=== PATIENT | male | born 1965 | race Caucasian/White ===

== ENCOUNTER 2018-02-09 14:37 | Emergency (ER) | payer MEDICAID ==
[2018-02-09] MEDS ORDERED: MORPHINE SULFATE 10 MG/ML VIAL IVP ONE (14:47)
[2018-02-09] MEDS ORDERED: ACETAMINOPHEN 1,000 MG/100 ML BTL IVPB ONE (14:47)
[2018-02-09] MEDS ORDERED: IPRATROPIUM/ALBUTEROL (0.5MG/3MG) NEB INH ONE (14:48)
--- NOTE | 2018-02-09 14:50 | Emergency Department Record ---
History of Present Illness - General Stated Complaint: PAIN IN LEFT HIP Time Seen by Provider: 02/09/18 14:46 Source: Patient Mode of Arrival: Ambulatory Limitations: No limitations - History of Present Illness Initial comments: 52 yo male presents with one month of back pain with pain down the left leg. The pain is sharp and slowly worsening. He has ESRD. He stopped going to dialysis about 3 months ago. He states he is not currently taking any of his medications and he does not have a PCP. He is here with his cousin who he lives with and is his wound care rn. He has been tired, confused often, and has trouble collecting his thoughts. No syncope. No fever that she is aware of at this time. No trauma. -: Month(s) (1) Location: Left, Back Radiation: Back Quality: Aching, Sharp Consistency: Constant Improves with: None Worsens with: Movement Associated Symptoms: Cough Treatments Prior to Arrival: None - [place] Coma Scale Eye Response: (4) Open spontaneously Motor Response: (6) Obeys commands Verbal Response: (5) Oriented [place] Total: 15 - Related Data Allergies Allergy/AdvReac Type Severity Reaction Status Date / Time No Known Allergies Allergy PT UNSURE Verified 07/10/15 17:21 OF REACTION Review of Systems Constitutional: Reports: Malaise, Weakness. Denies: Chills, Fever Eyes: Denies: Eye discharge, Eye pain ENT: Denies: Congestion, Throat pain Respiratory: Reports: Cough, Dyspnea, Wheezes. Denies: Hemoptysis Cardiovascular: Denies: Chest pain, Palpitations, Syncope Endocrine: Denies: Fatigue Gastrointestinal: Denies: Abdominal pain, Diarrhea, Nausea, Vomiting Genitourinary: Denies: Dysuria, Frequency Musculoskeletal: Reports: Back pain. Denies: Arthralgia, Myalgia Skin: Reports: Rash (groiin). Denies: Bruising, Change in color Neurological: Reports: Confusion (at times), Weakness (generalized). Denies: Numbness Psychiatric: Denies: Anxiety Hematological/Lymphatic: Denies: Easy bleeding, Easy bruising Past Medical History - SOCIAL HISTORY Smoking Status: Current every day smoker - RESPIRATORY Hx Respiratory Disorders: No - CARDIOVASCULAR Hx Cardio Disorders: No - NEURO Hx Neuro Disorders: Yes Hx CVA: Yes - GI Hx GI Disorders: No - Hx Genitourinary Disorders: No - ENDOCRINE Hx Endocrine Disorders: No - MUSCULOSKELETAL Hx Musculoskeletal Disorders: No - PSYCH Hx Psych Problems: No - HEMATOLOGY/ONCOLOGY Hx Hematology/Oncology Disorders: No Physical Exam - General General Appearance: Alert, Oriented x3, Cooperative, No acute distress Limitations: No limitations - Head Head exam: Atraumatic, Normal inspection - Eye Eye exam: Normal appearance. negative: Conjunctival injection - ENT ENT exam: Normal exam, Mucous membranes moist Ear exam: Normal external inspection Nasal Exam: Normal inspection Mouth exam: Normal external inspection - Neck Neck exam: Normal inspection - Respiratory Respiratory exam: Prolonged expiratory, Rhonchi, Wheezes. negative: Normal lung sounds bilaterally - Cardiovascular Cardiovascular Exam: Regular rate, Normal rhythm, Normal heart sounds Peripheral Pulses: 2+: Radial (R), Radial (L) (Thrill and bruit present left arm fistula) - GI/Abdominal GI/Abdominal exam: Soft, Other (groin erythema, mild weaping). negative: Tenderness - Rectal Rectal exam: Deferred - exam: Other (scrotum is spared from the diffuse erythema of rash in the suprapubic area and groin creases). negative: Circumcision, Normal inspection - Extremities Extremities exam: Normal inspection - Back Back exam: Reports: Muscle spasm, Paraspinal tenderness, Tenderness. Denies: CVA tenderness (R), CVA tenderness (L) Image of Body Front/Back: 1 - tenderness, normal inspection - Neurological Neurological exam: Abnormal gait (antalgic due to back pain), Alert, Oriented X3. negative: Altered, Motor sensory deficit - Psychiatric Psychiatric exam: Normal affect, Normal mood. negative: Agitated, Anxious - Skin Skin exam: Rash (groin, suprapubic, weaping, erythema, consistent with tinea) Course - Reevaluation(s) Reevaluation #1: EKG 15:03 Sinus Tachycardia rate 101, intervals Qtc 505 QRS 145, [place] Leftward , ST RBBB. No prior. 02/09/18 15:16 The labs were reviewed. The CBC demonstrates a WBC of 15 The BUN is 123 The CR is 21 The HCO3 is 7 The K is 3.6 02/09/18 15:52 02/09/18 16:06 Given his renal failure, weakness, he agrees with transfer for evaluation for dialysis 02/09/18 16:10 The patient states he is agreeable to have dialysis due to not feeling generally well at all He prefers [facility] at [facility] was contacted given there are not dialysis services at [facility] 02/09/18 16:18 02/09/18 16:28 Dr Saul accepts the patient for transfer for evaluation and nephrology consultation. 02/09/18 16:36 Nephrology was notified at [facility] Medical Decision Making - Lab Data Result diagrams: 02/09/18 15:03 02/09/18 15:03 Disposition Disposition: Transfer Clinical Impression: COPD exacerbation, Uremia, Tinea corporis Sciatica Qualifiers: Laterality: unspecified laterality Qualified Code(s): M54.30 - Sciatica, unspecified side Disposition: Acute Care Hospital Transfer Transfer To: [facility] Reason For Transfer: ESRD, Uremia, Sciatica, COPD Accepting Physician: Dorys Time Discussed w/Accepting Physician: 16:27 Condition: (2) Stable Time of Disposition: 16:08 Quality - Quality Measures Quality Measures: N/A - Blood Pressure Screening Does Patient Have Any of the Following: Active Dx of HTN Blood Pressure Classification: Hypertensive Reading Systolic Measurement: 188 Diastolic Measurement: 91 Screening for High Blood Pressure: Patient Exclusion, Hx of HTN [G9744]
[2018-02-09 15:10] LABS: HEMOGLOBIN 10.1 gm/dl (14.0-18.0); MEAN CELL VOLUME 89.6 fl (81-97); MEAN CORPUSCULAR HEMOGLOBIN 30.1 pg (27-33); MEAN CORPUSCULAR HGB CONC 33.7 g/dl (32-36); MEAN PLATELET VOLUME 10.3 fl (7.4-10.4); PLATELET COUNT 226 K/uL (130-400); RED BLOOD COUNT 3.35 M/uL (4.40-5.70); RED CELL DISTRIBUTION WIDTH 15.5 % (11.5-14.5); WHITE BLOOD COUNT W/O DIFF 15.6 K/uL (4.2-12.2)
[2018-02-09 15:18] LABS: PLATELET ESTIMATE NORMAL (NORMAL)
[2018-02-09 15:23] LABS: PARTIAL THROMBOPLASTIN TIME 25.7 SECONDS (24.5-39.1); PROTHROMBIN TIME (PATIENT) 10.5 SECONDS (9.5-12.1)
[2018-02-09 15:24] LABS: BILIRUBIN,TOTAL 0.4 mg/dL (0.2-1.0); CREATININE 21.3 mg/dL (0.7-1.2)
[2018-02-09 15:25] LABS: TOTAL PROTEIN 6.4 g/dL (6.6-8.7)
[2018-02-09 15:30] LABS: ALB/GLOB RATIO 1.4 (1.1-1.8); ALBUMIN 3.7 g/dL (4.0-5.0)
[2018-02-09] MEDS ORDERED: NYSTATIN 15 GM TUBE TOP STA (15:58)
--- NOTE | 2018-02-12 08:53 | RADIOLOGY REPORT ---
EXAM: LUMBAR SPINE W/OBLIQUES HISTORY: PAIN. TECHNIQUE: Five views of the lumbar spine. FINDINGS: Vertebral body height and alignment are maintained. The intervertebral discs are preserved. No fracture, dislocation, spondylolysis, or spondylolisthesis is identified. Note is made of prior abdominal hernia repair with mesh. IMPRESSION: NO ACUTE LUMBAR SPINE PATHOLOGY. JOB NUMBER: [id number] MTDD
== END 2018-02-09 17:46 | disposition short-term general hospital (02) ==
LOC: ER 14:37
DX: J44.1 Chronic obstructive pulmonary disease with (acute) exacerbation (principal); N18.6 End stage renal disease; B35.4 Tinea corporis; R53.1 Weakness; M54.42 Lumbago with sciatica, left side; M54.41 Lumbago with sciatica, right side; Z99.2 Dependence on renal dialysis; F17.210 Nicotine dependence, cigarettes, uncomplicated
CPT/HCPCS: 99285 ×2; 96365; 96375; 85730; 85610; 80053; 85027; 72110; 94640; 93005; 93010; J2270

== ENCOUNTER 2018-03-24 20:56 | Emergency (ER) | payer MEDICARE, MEDICAID ==
--- NOTE | 2018-03-24 21:05 | Emergency Department Record ---
History of Present Illness - General Chief Complaint: Altered Mental Status Stated Complaint: ALTERED MENTAL STATE Time Seen by Provider: 03/24/18 20:56 Source: Patient, EMS Mode of Arrival: EMS Limitations: Altered mental status - History of Present Illness Initial Comments: 52 yo male presents to ED for evaluation of confusion today noticed by family. Per family, patient has a history of ESRD on dialysis, was due today but did not go. Patient reports recent history of diarrhea that he has "all the time", does have stool present to the lower extremities bilaterally. Patient does not recall who his customer service rep is, does not know why he is in the ED this evening. MD Complaint: Confusion Onset/Timin -: Days(s) Severity: Mild Associated Symptoms: Denies other symptoms - [place] Coma Scale Eye Response: (4) Open spontaneously Motor Response: (6) Obeys commands Verbal Response: (5) Oriented [place] Total: 15 - Related Data Home Medications Medication Instructions Recorded Confirmed Last Taken Atorvastatin Calcium 40 mg PO DAILY 03/24/18 03/24/18 03/24/18 Calcium Acetate 668 mg PO TID 03/24/18 03/24/18 03/24/18 Cyclobenzaprine HCl [Flexeril] 5 mg PO TID 03/24/18 03/24/18 03/24/18 Hydrocodone/Acetaminophen [[place] 1 each PO BID 03/24/18 03/24/18 03/24/18 10-325 Tablet] Sevelamer Carbonate 800 mg PO TID 03/24/18 03/24/18 03/24/18 Allergies Allergy/AdvReac Type Severity Reaction Status Date / Time No Known Allergies Allergy PT UNSURE Verified 07/10/15 17:21 OF REACTION Review of Systems ROS unobtainable: Due to mental status Past Medical History - SOCIAL HISTORY Smoking Status: Current every day smoker - RESPIRATORY Hx Respiratory Disorders: No - CARDIOVASCULAR Hx Cardio Disorders: No - NEURO Hx Neuro Disorders: Yes Hx CVA: Yes - GI Hx GI Disorders: No - Hx Genitourinary Disorders: No - ENDOCRINE Hx Endocrine Disorders: No - MUSCULOSKELETAL Hx Musculoskeletal Disorders: No - PSYCH Hx Psych Problems: No - HEMATOLOGY/ONCOLOGY Hx Hematology/Oncology Disorders: No Physical Exam - General General Appearance: Alert, Oriented x3, Cooperative Limitations: Other - Head Head exam: Atraumatic, Normocephalic, Normal inspection Head exam detail: negative: Abrasion, Contusion, Ashley's sign, General tenderness, Hematoma, Laceration - Eye Eye exam: Normal appearance. negative: Conjunctival injection, Periorbital swelling, Periorbital tenderness, Scleral icterus - ENT Ear exam: negative: Auricular hematoma, Auricular trauma Nasal Exam: negative: Active bleeding, Discharge, Dried blood, Foreign body Mouth exam: negative: Drooling, Laceration, Muffled voice, Tongue elevation - Neck Neck exam: Normal inspection. negative: Meningismus, Tenderness - Respiratory Respiratory exam: Wheezes. negative: Respiratory distress, Rhonchi, Stridor - Cardiovascular Cardiovascular Exam: Regular rate, Normal rhythm, Normal heart sounds - GI/Abdominal GI/Abdominal exam: Soft. negative: Rebound, Rigid, Tenderness - Rectal Rectal exam: Deferred - exam: Deferred - Extremities Extremities exam: Other (Stool to the lower extremities bilaterally). negative : Pedal edema, Tenderness - Back Back exam: Denies: CVA tenderness (R), CVA tenderness (L) - Neurological Neurological exam: Alert, Oriented X3 - Psychiatric Psychiatric exam: Normal affect, Normal mood - Skin Skin exam: Normal color. negative: Abrasion Type of lesion: negative: abrasion Course - Reevaluation(s) Reevaluation #1: 03/24/18 21:10 EKG: NSR 81 RBBB, no acute ST-T wave changes Unchanged 02/09/18 Reevaluation #2: 03/24/18 21:22 BS ultrasound was performed, no significant pericardial effusion was identified. Initial laboratory studies were reviewed: WBC 14.2 Hgb 10.2 HCT 33.6 Reevaluation #3: 03/24/18 21:32 Comprehensive panel returned: Potassium 4.9 CO2 19 AG 19 BUN 61 Creatinine [address] Brain to initiate transfer. Reevaluation #4: 03/24/18 21:57 [facility] contacted for transfer. Review of the patient's CT imaging does not reveal an acute ICH (preliminary ED review). Reevaluation #5: 03/24/18 22:04 Case was discussed with Dr. Wheatley, will accept transfer for admission at this time. Medical Decision Making - Lab Data Result diagrams: 03/24/18 21:11 03/24/18 21:11 Disposition Disposition: Transfer Clinical Impression: Hyperkalemia, Uremia, ESRD (end stage renal disease), Elevated troponin Anemia Qualifiers: Anemia type: unspecified type Qualified Code(s): D64.9 - Anemia, unspecified Disposition: Acute Care Hospital Transfer Transfer To: [facility] Reason For Transfer: Uremia Accepting Physician: Dioni Time Discussed w/Accepting Physician: 22:05 Condition: (2) Stable Forms: Patient Portal Access Time of Disposition: 22:05 Quality - Quality Measures Quality Measures: N/A - Blood Pressure Screening Does Patient Have Any of the Following: Active Dx of HTN Blood Pressure Classification: Hypertensive Reading Systolic Measurement: 160 Diastolic Measurement: 113 Screening for High Blood Pressure: Patient Exclusion, Hx of HTN [G9744]
[2018-03-24 21:10] LABS: BASO % 0.6 % (0-6); EOS % 2.7 % (0-6); GRAN % 76.1 % (47-80); HEMATOCRIT 33.6 % (42.0-52.0); HEMOGLOBIN 10.2 gm/dl (14.0-18.0); LYMPH % 14.3 % (16-45); MEAN CELL VOLUME 102.1 fl (81-97); MEAN CORPUSCULAR HGB CONC 30.4 g/dl (32-36); MEAN PLATELET VOLUME 9.8 fl (7.4-10.4); MONO % 6.3 % (0-9); PLATELET COUNT 311 K/uL (130-400); RED BLOOD COUNT 3.29 M/uL (4.40-5.70); RED CELL DISTRIBUTION WIDTH 15.6 % (11.5-14.5); WHITE BLOOD COUNT W/O DIFF 14.2 K/uL (4.2-12.2)
[2018-03-24 21:25] LABS: BILIRUBIN,TOTAL 0.3 mg/dL (0.2-1.0); CREATININE 10.1 mg/dL (0.7-1.2); TOTAL PROTEIN 7.1 g/dL (6.6-8.7)
[2018-03-24 21:30] LABS: ALB/GLOB RATIO 1.4 (1.1-1.8); ALBUMIN 4.1 g/dL (4.0-5.0)
[2018-03-24 21:56] LABS: URINE APPEARANCE CLEAR; URINE BILIRUBIN NEGATIVE (NEGATIVE); URINE BLOOD NEGATIVE (NEGATIVE); URINE COLOR YELLOW; URINE KETONE NEGATIVE (NEGATIVE); URINE LEUKOCYTE ESTERASE NEGATIVE (NEGATIVE); URINE NITRITE NEGATIVE (NEGATIVE); URINE UROBILINOGEN 0.2 E.U./dL (0.20 - 1.00)
--- NOTE | 2018-03-26 19:31 | CT SCAN REPORT ---
EXAM: CT SCAN HEAD WO CONTRAST HISTORY: ALTERED MENTAL STATUS. TECHNIQUE: Noncontrast CT brain. COMPARISON: None. FINDINGS: Focal parenchymal hypodensity in the posterior right frontal lobe suggestive of encephalomalacia. Additional small foci of hypodensity in the right thalamus and right basal ganglia suggesting remote lacunar infarctions. No midline shift, mass effect, or abnormal intra or extraaxial fluid collection. No cerebral edema, focal mass, or intracranial hemorrhage is detected. Mild diffuse prominence of the ventricles and cortical sulci compatible with age-related cerebral volume loss. Basal cisterns are not effaced. No acute calvarial fracture is detected. Minimal opacification of the mastoid air cells bilaterally. Paranasal sinuses are clear. IMPRESSION: 1. NO ACUTE INTRACRANIAL FINDINGS. SUGGESTION OF FOCAL ENCEPHALOMALACIA IN THE POSTERIOR RIGHT FRONTAL LOBE, LIKELY REPRESENTING REMOTE INFARCTION. ADDITIONAL REMOTE LACUNAR INFARCTIONS NOTED IN THE RIGHT THALAMUS AND RIGHT BASAL GANGLIA. 2. MILD DIFFUSE CEREBRAL VOLUME LOSS. 3. PARTIAL OPACIFICATION OF THE MASTOID AIR CELLS BILATERALLY. JOB NUMBER: [id number] MTDD
== END 2018-03-25 00:20 | disposition short-term general hospital (02) ==
LOC: ER 20:56
DX: N18.6 End stage renal disease (principal); E87.5 Hyperkalemia; D64.9 Anemia, unspecified; R79.89 Other specified abnormal findings of blood chemistry; R19.7 Diarrhea, unspecified; R41.82 Altered mental status, unspecified; F17.210 Nicotine dependence, cigarettes, uncomplicated; Z99.2 Dependence on renal dialysis; Z86.73 Personal history of transient ischemic attack (TIA), and cerebral infarction without residual deficits
CPT/HCPCS: 70450; 80053; 81003; 82140; 84484; 85025; 93005; 93010; 99285

== ENCOUNTER 2018-05-22 16:28 | Emergency (ER) | payer MEDICARE, MEDICAID ==
--- NOTE | 2018-05-22 16:50 | Emergency Department Record ---
History of Present Illness - General Chief complaint: Nausea, Vomiting, Diarrhea Stated complaint: DIARRHEA FOR A MONTH Time Seen by Provider: 05/22/18 16:39 Source: Patient Mode of Arrival: EMS Limitations: No limitations - History of Present Illness Initial comments: The patient is here due to not feeling well due to having chronic diarrhea. He states he has had it for at least a month but his family stated in February he has it all the time. He is an ESRD patient on dialysis and state hes missed last weeks dialysis due to not feeling well. The patient denies any fever, chills, vomiting, or COLES's. He is a 3 times a weak dialysis patient and his Neprologist is at [facility] he believes. The patient denies any AP, back pain, cough, SOB, CP or ENE. MD complaint: Diarrhea Onset/Timin -: Month(s) Description of Diarrhea: Water Severity scale (1-10): 8 Quality: Aching Consistency: Intermittent Improves with: None Worsens with: None Associated Symptoms: Denies other symptoms - Related Data Allergies Allergy/AdvReac Type Severity Reaction Status Date / Time No Known Allergies Allergy PT UNSURE Verified 07/10/15 17:21 OF REACTION Travel Screening - Travel/Exposure Within Last 30 Days Have you traveled within the last 30 days?: No Review of Systems Constitutional: Denies: Chills, Fever Eyes: Denies: Eye discharge ENT: Denies: Congestion Respiratory: Denies: Cough, Dyspnea Cardiovascular: Denies: Arrhythmia, Chest pain Endocrine: Reports: Fatigue Gastrointestinal: Reports: Diarrhea. Denies: Nausea Genitourinary: Denies: Discharge Musculoskeletal: Denies: Arthralgia Skin: Denies: Bruising Past Medical History - SOCIAL HISTORY Smoking Status: Current every day smoker - RESPIRATORY Hx Respiratory Disorders: Yes Hx COPD: Yes - CARDIOVASCULAR Hx Cardio Disorders: Yes Hx Hypertension: Yes - NEURO Hx Neuro Disorders: Yes Hx CVA: Yes - GI Hx GI Disorders: No - Hx Genitourinary Disorders: Yes Hx Dialysis: Yes (left arm fistula) Hx Renal Disease: Yes - ENDOCRINE Hx Endocrine Disorders: No - MUSCULOSKELETAL Hx Musculoskeletal Disorders: No - PSYCH Hx Psych Problems: No - HEMATOLOGY/ONCOLOGY Hx Hematology/Oncology Disorders: No Family Medical History Any Significant Family History?: No Physical Exam - General General Appearance: Alert, Cooperative, No acute distress - Head Head exam: Atraumatic, Normocephalic - Eye Eye exam: Normal appearance, PERRL - ENT Throat exam: Normal inspection. negative: Tonsillar erythema, Tonsillar exudate - Neck Neck exam: Normal inspection, Full ROM. negative: Tenderness - Respiratory Respiratory exam: Normal lung sounds bilaterally. negative: Accessory muscle use, Rales, Respiratory distress, Rhonchi, Stridor, Wheezes - Cardiovascular Cardiovascular Exam: Regular rate, Normal rhythm, Normal heart sounds - GI/Abdominal GI/Abdominal exam: Soft, Normal bowel sounds, Hernia (The patient does have a nontender ventral wall hernia which he states is chronic.). negative: Rebound, Rigid, Tenderness - Extremities Extremities exam: Normal inspection, Full ROM, Normal capillary refill. negative: Tenderness - Back Back exam: Reports: Normal inspection - Neurological Neurological exam: Alert. negative: Motor sensory deficit - Psychiatric Psychiatric exam: negative: Anxious Course Vital Signs 05/22/18 16:30 Temperature 97.9 F Pulse Rate 101 H Respiratory 20 Rate Blood Pressure 161/99 Pulse Ox 100 - Reevaluation(s) Reevaluation #1: The patient is resting comfortably with no problems, pain, SOB, or ENE. The patient is a very unreliable historian but he has a hx of skipping dialysis. I did discuss he case with Dr. Tolentino who is agronomy internship for Nephrology at [facility] who is aware of the patient. Based on the lab results and CXR he does believe the patient can be safely discharged home for dialysis tomorrow. Dr. Tolentino did call the patient's dialysis center and get him an appointment for tomorrow morning at 7am. The patient agrees with the plan. 05/22/18 18:17 Medical Decision Making - Data Complexity MDM Data: Labs Ordered and/or Reviewed, X-Ray Ordered and/or Reviewed, EKG Ordered and/or Reviewed - Lab Data Result diagrams: 05/22/18 16:45 05/22/18 16:45 - EKG Data -: EKG Interpreted by Me EKG: No Acute Changes, Unchanged From Previous - Radiology Data Radiology results: Report reviewed (CXR: Neg for acute changes. Neg for fluid overload.) Disposition Disposition: Discharge Clinical Impression: ESRD (end stage renal disease) Disposition: Home, Self-Care Condition: (2) Stable Instructions: End Stage Kidney Disease (ED) Additional Instructions: Please limit your fluid intake and take your medicine. Please be at your dialysis appointment tomorrow at 7am. Please see your doctor for your chronic diarrhea issues. Forms: Patient Portal Access Time of Disposition: 18:21 Quality - Quality Measures Quality Measures: N/A - Blood Pressure Screening View Details: Yes Does Patient Have Any of the Following: No Blood Pressure Classification: Hypertensive Reading Systolic Measurement: 161 Diastolic Measurement: 99 Screening for High Blood Pressure: < First Hypertensive BP, F/U Documented > [ G8950] First Hypertensive Follow-up Interventions: Referral to alternative/primary care provider.
[2018-05-22 16:53] LABS: BASO % 0.7 % (0-6); EOS % 2.8 % (0-6); GRAN % 77.7 % (47-80); HEMATOCRIT 42.1 % (42.0-52.0); HEMOGLOBIN 13.7 gm/dl (14.0-18.0); LYMPH % 11.6 % (16-45); MEAN CELL VOLUME 94.8 fl (81-97); MEAN CORPUSCULAR HGB CONC 32.5 g/dl (32-36); MEAN PLATELET VOLUME 10.4 fl (7.4-10.4); MONO % 7.2 % (0-9); PLATELET COUNT 253 K/uL (130-400); RED BLOOD COUNT 4.44 M/uL (4.40-5.70); RED CELL DISTRIBUTION WIDTH 14.8 % (11.5-14.5); WHITE BLOOD COUNT W/O DIFF 9.1 K/uL (4.2-12.2)
[2018-05-22 16:58] LABS: MEAN CORPUSCULAR HEMOGLOBIN 30.8 pg (27-33)
[2018-05-22 17:02] LABS: CREATININE 11.1 mg/dL (0.7-1.2); TOTAL PROTEIN 6.8 g/dL (6.6-8.7)
[2018-05-22 17:07] LABS: ALBUMIN 4.1 g/dL (4.0-5.0); ALKALINE PHOSPHATASE 224 U/L (40-129); ALT/SGPT 12 U/L (<41); AST/SGOT 9 U/L (10.0-50.0)
[2018-05-22 17:08] LABS: BILIRUBIN,DIRECT < 0.2 mg/dL (0-0.3)
== END 2018-05-22 18:25 | disposition home or self-care (01) ==
LOC: ER 16:28
DX: I12.0 Hypertensive chronic kidney disease with stage 5 chronic kidney disease or end stage renal disease (principal); N18.6 End stage renal disease; R11.2 Nausea with vomiting, unspecified; R19.7 Diarrhea, unspecified; F17.210 Nicotine dependence, cigarettes, uncomplicated
CPT/HCPCS: 71046; 80048; 80076; 85025; 93005; 93010; 99284

== ENCOUNTER 2018-07-28 16:15 | Emergency (ER) | payer MEDICARE, MEDICAID ==
--- NOTE | 2018-07-28 16:36 | Emergency Department Record ---
History of Present Illness - General Chief complaint: Weakness Stated complaint: SICK/WEAKNESS Time Seen by Provider: 07/28/18 16:29 Source: Patient Mode of Arrival: Ambulatory Limitations: No limitations - History of Present Illness Initial comments: The patient is here due to not feeling well for 3 months. He has a long hx of renal failure and chronic diarrhea and has refused dialysis for the last few months. Now he states he is having trouble eating and is so weak he is having problems walking so a friend decided to drop him off here at [facility]. The patient is supposed to have dialysis in [place] and he has a [employer] [facility] [employer]. MD Complaint: Generalized weakness Onset/Timin -: Month(s) Improves with: None Worsens with: None - [place] Coma Scale Eye Response: (4) Open spontaneously Motor Response: (6) Obeys commands Verbal Response: (5) Oriented [place] Total: 15 - Related Data Allergies Allergy/AdvReac Type Severity Reaction Status Date / Time No Known Allergies Allergy PT UNSURE Verified 07/28/18 16:27 OF REACTION Travel Screening - Travel/Exposure Within Last 30 Days Have you traveled within the last 30 days?: No - Travel/Exposure Within Last Year Have you traveled outside the [place] in the last year?: No - Additonal Travel Details Have you been exposed to anyone with a communicable illness?: No - Travel Symptoms Symptom Screening: Weakness Review of Systems Constitutional: Reports: Malaise. Denies: Chills, Fever Eyes: Denies: Eye discharge ENT: Denies: Congestion Respiratory: Denies: Cough, Dyspnea Cardiovascular: Denies: Chest pain Endocrine: Reports: Fatigue Gastrointestinal: Denies: Nausea Genitourinary: Denies: Dysuria Musculoskeletal: Denies: Arthralgia Skin: Denies: Bruising Past Medical History - SOCIAL HISTORY Smoking Status: Current every day smoker Alcohol Use: None Drug Use: None - RESPIRATORY Hx Respiratory Disorders: Yes Hx COPD: Yes - CARDIOVASCULAR Hx Cardio Disorders: Yes Hx Hypertension: Yes - NEURO Hx Neuro Disorders: Yes Hx CVA: Yes - GI Hx GI Disorders: No - Hx Genitourinary Disorders: Yes Hx Dialysis: Yes (left arm fistula) Hx Renal Disease: Yes Comment:: on dialysys - ENDOCRINE Hx Endocrine Disorders: No - MUSCULOSKELETAL Hx Musculoskeletal Disorders: No - PSYCH Hx Psych Problems: No - HEMATOLOGY/ONCOLOGY Hx Hematology/Oncology Disorders: No Family Medical History Any Significant Family History?: No Physical Exam - General General Appearance: Alert, Cooperative, No acute distress - Head Head exam: Atraumatic, Normocephalic - Eye Eye exam: Normal appearance, PERRL, EOMI - ENT Throat exam: Normal inspection. negative: Tonsillar erythema, Tonsillar exudate - Neck Neck exam: Normal inspection, Full ROM. negative: Tenderness - Respiratory Respiratory exam: Normal lung sounds bilaterally. negative: Respiratory di stress - Cardiovascular Cardiovascular Exam: Regular rate, Normal rhythm, Normal heart sounds - GI/Abdominal GI/Abdominal exam: Soft, Normal bowel sounds. negative: Tenderness - Extremities Extremities exam: Normal inspection, Full ROM, Normal capillary refill. negative: Tenderness - Neurological Neurological exam: Alert. negative: Motor sensory deficit - Psychiatric Psychiatric exam: negative: Anxious Course Vital Signs 07/28/18 16:21 Temperature 98.3 F Pulse Rate 114 H Respiratory 20 Rate Blood Pressure 113/76 Pulse Ox 97 - Reevaluation(s) Reevaluation #1: I did discuss the case with Dr. Tolentino (Nephrology) at [facility] and he would like the patient transferred for admission. 07/28/18 17:26 Reevaluation #2: I did discuss the case with Dr. Perales who did accept the patient for a direct admission to [facility]. 07/28/18 17:49 Medical Decision Making - Data Complexity MDM Data: Labs Ordered and/or Reviewed, X-Ray Ordered and/or Reviewed, EKG Ordered and/or Reviewed - Lab Data Result diagrams: 07/28/18 16:35 07/28/18 16:35 - EKG Data -: EKG Interpreted by Me EKG: No Acute Changes, Unchanged From Previous - Radiology Data Radiology results: Report reviewed (CXR: Neg for any acute changes.) Disposition Disposition: Transfer Clinical Impression: Renal failure (ARF), acute on chronic Qualifiers: Acute renal failure type: unspecified Chronic kidney disease stage: unspecified stage Qualified Code(s): N17.9 - Acute kidney failure, unspecified Disposition: Acute Care Hospital Transfer Transfer To: [facility] Reason For Transfer: Nephrology Accepting Physician: Diaz Time Discussed w/Accepting Physician: 17:50 Condition: (2) Stable Forms: Patient Portal Access Time of Disposition: 17:50 Quality - Quality Measures Quality Measures: N/A - Blood Pressure Screening View Details: Yes Does Patient Have Any of the Following: No Blood Pressure Classification: Normal BP Reading Systolic Measurement: 113 Diastolic Measurement: 76 Screening for High Blood Pressure: < Normal BP, F/U Not Required > [G8707]
[2018-07-28 16:47] LABS: ABSOLUTE NEUTROPHIL COUNT 8.75; HEMATOCRIT 36.2 % (42.0-52.0); HEMOGLOBIN 12.3 gm/dl (14.0-18.0); MEAN CELL VOLUME 87.4 fl (81-97); MEAN CORPUSCULAR HEMOGLOBIN 29.7 pg (27-33); MEAN PLATELET VOLUME 10.8 fl (7.4-10.4); PLATELET COUNT 270 K/uL (130-400); RED BLOOD COUNT 4.14 M/uL (4.40-5.70); RED CELL DISTRIBUTION WIDTH 14.9 % (11.5-14.5); WHITE BLOOD COUNT W/O DIFF 10.6 K/uL (4.2-12.2)
[2018-07-28 17:03] LABS: PARTIAL THROMBOPLASTIN TIME 27.6 SECONDS (24.5-39.1)
[2018-07-28 17:05] LABS: BILIRUBIN,TOTAL 0.6 mg/dL (0.2-1.0); CREATININE 16.4 mg/dL (0.7-1.2); TOTAL PROTEIN 6.6 g/dL (6.6-8.7)
[2018-07-28 17:10] LABS: ALB/GLOB RATIO 1.9 (1.1-1.8); ALBUMIN 4.3 g/dL (4.0-5.0)
[2018-07-28 17:14] LABS: CKMB 4.1 ng/mL (<6.73)
--- NOTE | 2018-07-30 20:41 | RADIOLOGY REPORT ---
EXAM: CHEST 1 VIEW HISTORY: DIFFICULTY BREATHING. TECHNIQUE: Single AP view of the chest. COMPARISON: Two-view chest radiograph 05/22/2018. FINDINGS: Cardiac silhouette within normal size limits. Low inspiratory lung volumes. No focal pulmonary consolidation. No significant pleural fluid collection or visible pneumothorax. Minimal linear scarring or atelectasis near the right lung base. IMPRESSION: NO ACUTE LUNG FINDINGS. JOB NUMBER: [id number] MTDD
== END 2018-07-28 19:41 | disposition short-term general hospital (02) ==
LOC: ER 16:15
DX: I12.0 Hypertensive chronic kidney disease with stage 5 chronic kidney disease or end stage renal disease (principal); N18.6 End stage renal disease; N17.9 Acute kidney failure, unspecified; R53.1 Weakness; R06.00 Dyspnea, unspecified; J44.9 Chronic obstructive pulmonary disease, unspecified; F17.210 Nicotine dependence, cigarettes, uncomplicated
CPT/HCPCS: 71045; 80053; 82550; 82553; 84484; 85027; 85610; 85730; 93005; 93010; 99285